=== PATIENT | female | born 1940 | race Asian ===

== ENCOUNTER → 2018-05-02 | Outpatient (CLI) | payer MEDICARE, OTHER ==
--- NOTE | 2018-05-02 14:49 | WOMENS IMAGING REPORT ---
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 LIMITATIONS: None. FINDINGS: LUMBAR SPINE: The bone mineral density (BMD) measured from L1-L4 in the AP projection correlates with a T-score of -1.9, which is osteopenic as defined by the World Health Organization. This is stable compared to 20 16 HIP: The bone mineral density (BMD) measured in the left femoral neck at the hip correlates with a T-score of - 3.0, which is osteoporotic as defined by the World Health Organization. This represents a 10% decline in bone density 2015 IMPRESSION: 1. LUMBAR SPINE: Osteopenic 2. HIP: The osteoporotic COMMENT: The World Health Organization defines low BMD as follows: T-score: Normal: Greater than -1.0 Osteopenia: Between -1.0 and -2.5 Osteoporosis: Less than -2.5 without fractures Established osteoporosis: Less than -2.5 with fractures In general, you may wish to consider: Diagnosis Treatment Follow-up DEXA Normal BMD Prevention 2-3 years Osteopenia Prevention/Therapy 1-2 years Osteoporosis Therapy Yearly TECHNICAL DOCUMENTATION: JOB ID: [id number]- All Rights Reserved Reading location - IP/workstation name: [facility]-[email or web address]
== END ==
LOC: WI 12:36
PROVIDERS: ATTEND Internal Medicine
DX: M81.0 Age-related osteoporosis without current pathological fracture (principal)
CPT/HCPCS: 77080

== ENCOUNTER 2018-05-28 17:41 | Inpatient (IN) | payer MEDICARE ==
[2018-05-28] MEDS ORDERED: NORMAL SALINE 1000 ML 1,000 ML IV ONE ×2 (17:54→23:30)
[2018-05-28] MEDS ORDERED: ONDANSETRON HCL INJ/PF 4 MG/2 ML SDV IV ONE (17:57)
[2018-05-28] MEDS ORDERED: LEVOFLOXACIN 750 MG/D5W RTU 750 MG/150 ML RTUPB IV ONE ×2 (18:21→19:00)
[2018-05-28 18:25] LABS: ABSOLUTE LYMPHOCYTES (AUTO) 1.1 10^3/uL (0.5-4.7); ABSOLUTE MONOCYTES (AUTO) 0.8 10^3/uL (0.1-1.4); ABSOLUTE NEUT (AUTO) 8.4 10^3/uL (1.7-8.2); BASOPHILS % (AUTO) 0.2 % (0-2); HEMATOCRIT 33.8 % (36.0-47.0); HEMOGLOBIN 11.3 g/dL (12.0-15.5); LYMPHOCYTES % (AUTO) 10.3 % (13-45); MEAN CORPUSCULAR HEMOGLOBIN 29.1 pg (27.0-33.4); MEAN CORPUSCULAR HGB CONC 33.3 g/dL (32.0-36.0); MEAN CORPUSCULAR VOLUME 88 fl (80-97); MONOCYTES % (AUTO) 7.4 % (3-13); PLATELET COUNT 304 10^3/uL (150-450); RED BLOOD COUNT 3.87 10^6/uL (3.72-5.28); RED CELL DISTRIBUTION WIDTH 13.6 % (11.5-14.0); SEGMENTED NEUTROPHILS % (AUTO) 82.1 % (42-78); TOTAL CELLS COUNTED % (AUTO) 100 %; WHITE BLOOD COUNT 10.3 10^3/uL (4.0-10.5)
[2018-05-28 18:27] LABS: VENOUS BLOOD BASE EXCESS -4.8 mmol/L; VENOUS BLOOD HCO3 19.1 mmol/L (20-32); VENOUS BLOOD PCO2 32.6 mmHg (35-63); VENOUS BLOOD PH 7.39 (7.30-7.42)
[2018-05-28 18:29] LABS: INTERNATIONAL RATION (INR) 0.92; PROTHROMBIN TIME 12.8 SEC (11.4-15.4)
[2018-05-28 18:39] LABS: ALANINE AMINOTRANSFERASE 112 U/L (9-52); ALBUMIN 3.3 g/dL (3.5-5.0); ALKALINE PHOSPHATASE 73 U/L (38-126); ANION GAP 11 (5-19); ASPARTATE AMINO TRANSFERASE 146 U/L (14-36); BILIRUBIN,DIRECT 0.4 mg/dL (0.0-0.4); BILIRUBIN,TOTAL 0.6 mg/dL (0.2-1.3); BLOOD UREA NITROGEN 19 mg/dL (7-20); CALCIUM 8.9 mg/dL (8.4-10.2); CARBON DIOXIDE 18 mmol/L (22-30); CHLORIDE 105 mmol/L (98-107); GLUCOSE 117 mg/dL (75-110); POTASSIUM 4.4 mmol/L (3.6-5.0); SODIUM 134.2 mmol/L (137-145); TOTAL PROTEIN 6.6 g/dL (6.3-8.2)
--- NOTE | 2018-05-28 18:42 | RADIOLOGY REPORT (SQ) ---
EXAM DESCRIPTION: CHEST SINGLE VIEW COMPLETED DATE/TIME: 05/28/2018 6:33 pm REASON FOR STUDY: bed 4 sepsis protocol COMPARISON: None. EXAM PARAMETERS: NUMBER OF VIEWS: One view. TECHNIQUE: Single frontal radiographic view of the chest acquired. RADIATION DOSE: NA LIMITATIONS: None. FINDINGS: LUNGS AND PLEURA: Extensive left upper lobe and less prominent left lower lobe opacity. R ight lung is clear. MEDIASTINUM AND HILAR STRUCTURES: No masses. Contour normal. HEART AND VASCULAR STRUCTURES: Heart normal in size. Normal vasculature. BONES: No acute findings. HARDWARE: None in the chest. OTHER: No other significant finding. IMPRESSION: Extensive pneumonia predominantly left upper lobe. TECHNICAL DOCUMENTATION: JOB ID: [id number] [employer]- All Rights Reserved Reading location - IP/workstation name: [email or web address]
--- NOTE | 2018-05-28 18:53 | ER Document Report ---
ED General - General Chief Complaint: Fever Stated Complaint: FEVER Time Seen by Provider: 05/28/18 17:46 TRAVEL OUTSIDE OF THE [place] IN LAST 30 DAYS: No - HPI Notes: 78-year-old female without any medical problems except for thyroid and parathyroid disease presents with family for fever for the past 6 days. She developed abdominal pain in the lower abdomen 3 days ago that resolved after diarrhea developed 2 days ago. She reports several episodes of diarrhea a day. She reports a mild cough that causes a headache. She denies any headache without cough. Cough has been occasionally productive of yellow sputum. She has extreme nausea without vomiting. Denies rash. Denies any neck pain, pain with urination, travel or ill contacts. She was seen by her primary care physician 2 days ago and was given a prescription for nausea medicines and told to take Tylenol. She states no testing was done. She was given Tylenol prior to arrival by EMS. - Related Data Allergies/Adverse Reactions: Penicillins Allergy (Verified 05/28/18 18:17) Past Medical History - Social History Smoking Status: Never Smoker Chew tobacco use (# tins/day): No Frequency of alcohol use: None Drug Abuse: None Family History: Reviewed & Not Pertinent Patient has suicidal ideation: No Patient has homicidal ideation: No Endocrine Medical History: Reports: Hx Hypothyroidism, Other - parathyroid Renal/ Medical History: Denies: Hx Peritoneal Dialysis Past Surgical History: Reports: Hx Appendectomy, Hx Hysterectomy Review of Systems - Review of Systems Notes: Constitutional: Positive for fever. HENT: Negative for sore throat or sinus congestion. Eyes: Negative for visual changes. Cardiovascular: Negative for chest pain. Respiratory: Negative for shortness of breath. Positive for cough Gastrointestinal: Positive for abdominal pain, diarrhea, and nausea. No vomiting. Genitourinary: Negative for dysuria. Musculoskeletal: Negative for back pain. Skin: Negative for rash. Neurological: Positive for headache only with cough. Negative for weakness or numbness. 10 point ROS negative except as marked above and in HPI. Physical Exam - Vital signs Vitals: Resp Pulse Ox 18 95 05/28/18 17:55 05/28/18 17:55 - Notes Notes: PHYSICAL EXAMINATION: GENERAL: Ill appearing, well-nourished HEAD: Atraumatic, normocephalic. EYES: Pupils equal round and reactive to light, extraocular movements intact, conjunctiva are normal. ENT: nares patent, oropharynx clear without exudates. Moist mucous membranes. Effusions bilateral tympanic membranes. NECK: Normal range of motion, supple without lymphadenopathy LUNGS: Breath sounds clear to auscultation bilaterally and equal. No wheezes rales or rhonchi. HEART: Regular rate and rhythm, no chest wall tenderness ABDOMEN: Soft, normoactive bowel sounds. Tenderness right lower quadrant. No guarding, no rebound. No masses appreciated. EXTREMITIES: Normal range of motion, no pitting or edema. No cyanosis. NEUROLOGICAL: Cranial nerves grossly intact. Normal speech, normal gait. Normal sensory and motor exams. PSYCH: Normal mood, normal affect. SKIN: Warm, Dry, normal turgor, no rashes or lesions noted. Course - Re-evaluation Re-evalutation: 05/28/18 18:58 X-ray shows pneumonia. Has allergy to penicillin. Given Levaquin. Culture sent. 05/28/18 20:08 Urine and flu pending. Other labs unremarkable. Normal lactic acid. Discussed with hospitalist for admission. Patient family updated. - Vital Signs Vital signs: Temp Pulse Resp BP Pulse Ox 100.8 F H 16 121/58 L 95 05/28/18 18:26 05/28/18 19:00 05/28/18 18:04 05/28/18 18:04 - Laboratory Result Diagrams: 05/28/18 18:03 05/28/18 18:03 Laboratory results interpreted by me: 05/28/18 05/28/18 05/28/18 18:03 18:03 18:03 Hgb 11.3 L Hct 33.8 L Seg Neutrophils % 82.1 H Lymphocytes % 10.3 L Absolute Neutrophils 8.4 H VBG pCO2 32.6 L VBG HCO3 19.1 L Sodium 134.2 L Carbon Dioxide 18 L Est GFR (Non-Af Amer) 54 L Glucose 117 H AST 146 H ALT 112 H Albumin 3.3 L Urine Protein Urine Ketones Urine Blood Urine Urobilinogen Urine Ascorbic Acid 05/28/18 18:49 Hgb Hct Seg Neutrophils % Lymphocytes % Absolute Neutrophils VBG pCO2 VBG HCO3 Sodium Carbon Dioxide Est GFR (Non-Af Amer) Glucose AST ALT Albumin Urine Protein 100 H Urine Ketones TRACE H Urine Blood MODERATE H Urine Urobilinogen 4.0 H Urine Ascorbic Acid 40 H Discharge - Discharge Clinical Impression: Sepsis Qualifiers: Sepsis type: sepsis due to unspecified organism Qualified Code(s): A41.9 - Sepsis, unspecified organism Pneumonia Qualifiers: Pneumonia type: due to unspecified organism Laterality: unspecified laterality Lung location: unspecified part of lung Qualified Code(s): J18.9 - Pneumonia, unspecified organism Condition: Fair Disposition: ADMITTED INPATIENT Admitting Provider: Hospitalist Unit Admitted: Telemetry Referrals: JESUS BURGOS MD [ACTIVE STAFF] - Follow up as needed
[2018-05-28 19:48] LABS: APPEARANCE,URINE CLOUDY; BILIRUBIN,URINE NEGATIVE (NEGATIVE); GLUCOSE, URINE NEGATIVE (NEGATIVE); KETONES,URINE TRACE mg/dL (NEGATIVE); LEUKOCYTE ESTERASE,URINE NEGATIVE (NEGATIVE); NITRITE,URINE NEGATIVE (NEGATIVE); PROTEIN,URINE 100 mg/dL (NEGATIVE); URINE SPECIFIC GRAVITY 1.023
[2018-05-28 19:51] LABS: COLOR,URINE YELLOW
[2018-05-28] MEDS ORDERED: KETOROLAC TROMETHAMINE INJ/PF 30 MG/1 ML SDV IV PRN (20:06)
[2018-05-28] MEDS ORDERED: HYDRALAZINE HCL INJ/PF 20 MG/1 ML SDV IV PRN (20:06)
[2018-05-28] MEDS ORDERED: HYDROCODONE BIT/HOMATROPINE SYRUP 5 ML UDCUP PO PRN (20:06)
[2018-05-28] MEDS ORDERED: GUAIFENESIN SYRP 200 MG/10 ML UDC PO PRN (20:07)
[2018-05-28] MEDS ORDERED: IPRATROPIUM/ALBUTEROL 0.5-2.5 MG/3 ML AMPUL NEB PRN (20:07)
[2018-05-28] MEDS ORDERED: NORMAL SALINE 1000 ML 1,000 ML IV SCH (20:15)
[2018-05-28 21:08] LABS: A TYPE INFLUENZA AG NEGATIVE (NEGATIVE); B INFLUENZA AG NEGATIVE (NEGATIVE)
[2018-05-28] MEDS ORDERED: CEFEPIME 2 GM/D5W RTU 2 GM/50 ML RTUPB IV SCH (22:00)
[2018-05-28] MEDS ORDERED: HEPARIN SOD (PORCINE) 5,000 UNIT/ML 1 ML SYRINGE SUBCUT SCH (22:00)
[2018-05-28] MEDS ORDERED: FLUTICASONE NASAL SPRAY 50 MCG/SPRY 120 SPRAY/16 GM ONE (23:35)
[2018-05-28] MEDS ORDERED: CEFEPIME 2 GM/D5W RTU 2 GM/50 ML RTUPB IV ONE ×2 (23:35→23:45)
[2018-05-28] MEDS: HEPARIN SOD (PORCINE) 5,000 UNIT/ML 1 ML SYRINGE SUBCUT SCH (23:46)
[2018-05-28] MEDS: FLUTICASONE NASAL SPRAY 50 MCG/SPRY 120 SPRAY/16 GM NASL SCH (23:46)
[2018-05-29] MEDS: IPRATROPIUM/ALBUTEROL 0.5-2.5 MG/3 ML AMPUL NEB SCH ×4 (01:42→19:43)
[2018-05-29] MEDS: ACETAMINOPHEN 325 MG TABLET PO PRN ×3 (01:52→20:04)
--- NOTE | 2018-05-29 04:20 | PDOC H&P ---
History of Present Illness Admission Date/PCP: 05/28/18 20:15 CLARISSA HASTINGS MD Patient complains of: Shortness of breath and cough History of Present Illness: FARAZ MERRILL is a 78 year old female with past medical history of hyperparathyroidism and remote pulmonary tuberculosis status post treatment, presents with 3 days of fever, shortness of breath and cough. In the emergency room she is found to have a left upper lobe infiltrate and fever of 102.6. She started on empiric antibiotics and referred to the hospitalist for admission. She denies infectious contacts, recent travel, sinusitis, aspiration or GERD. No recent antibiotic use. Past Medical History Cardiac Medical History: Reports: Hyperlipidema Endocrine Medical History: Reports: Hypothyroidism, Other - parathyroid Past Surgical History Past Surgical History: Reports: Appendectomy, Hysterectomy Social History Information Source: Patient Smoking Status: Never Smoker Frequency of Alcohol Use: Rare Hx Recreational Drug Use: No Drugs: None Hx Prescription Drug Abuse: No - Advance Directive Resuscitation Status: Full Code Family History Family History: Hypertension Parental Family History Reviewed: Yes Children Family History Reviewed: Yes Sibling(s) Family History Reviewed.: Yes Medication/Allergy Home Medications: Pravastatin Sodium [Pravachol] 10 mg PO QHS 05/28/18 Allergies/Adverse Reactions: Penicillins Allergy (Verified 05/28/18 18:17) Physical Exam Vital Signs: Temp Pulse Resp BP Pulse Ox 100.2 F 95 18 126/51 H 92 05/29/18 03:04 05/29/18 02:00 05/29/18 01:42 05/28/18 23:21 05/29/18 01:42 Pulse Oximeter Continuous Start: 05/28/18 20: 07 Freq: RTQ4 Status: Active Document 05/29/18 01:36 [facility] (Rec: 05/29/18 01:37 [facility] [id number]) Pulse Oximetry Assessment Oxygen Saturation (92-100) 92 Oxygen Delivery Method Room Air Fraction of Inspired Oxygen (FIO2) 21 Equipment Usage Initial Set Up Continuous Pulse Oximeter 24 Hour Charge Charge Now Continuous SpO2 Machine # 9 Intake & Output 05/27/18 05/28/18 05/29/18 11:59 11:59 11:59 Intake Total 150 Balance 150 Weight 63.3 kg General appearance: PRESENT: cooperative, mild distress. ABSENT: disheveled, hard of hearing Head exam: PRESENT: atraumatic, normocephalic Eye exam: PRESENT: conjunctiva pink, EOMI, PERRLA. ABSENT: scleral icterus Ear exam: PRESENT: normal external ear exam Mouth exam: PRESENT: moist, tongue midline Neck exam: ABSENT: carotid bruit, JVD, lymphadenopathy, thyromegaly Respiratory exam: PRESENT: crackles, decreased breath sounds, rales, retraction , rhonchi, tachypnea Cardiovascular exam: PRESENT: tachycardia. ABSENT: bradycardia, clicks, diastolic murmur, gallop Pulses: PRESENT: normal dorsalis pedis pul Vascular exam: PRESENT: normal capillary refill GI/Abdominal exam: PRESENT: normal bowel sounds, soft. ABSENT: distended, guarding, mass, organolmegaly, rebound, tenderness Rectal exam: PRESENT: deferred Extremities exam: PRESENT: full ROM. ABSENT: calf tenderness, clubbing, pedal edema Neurological exam: PRESENT: alert, awake, oriented to person, oriented to place , oriented to time, oriented to situation, CN II-XII grossly intact. ABSENT: motor sensory deficit Psychiatric exam: PRESENT: appropriate affect, normal mood. ABSENT: homicidal ideation, suicidal ideation Skin exam: PRESENT: dry, intact, warm. ABSENT: cyanosis, rash Results Impressions: Chest X-Ray 05/28/18 17:42 IMPRESSION: Extensive pneumonia predominantly left upper lobe. Assessment & Plan - Diagnosis (1) Pneumonia Qualifiers: Pneumonia type: due to unspecified organism Laterality: unspecified laterality Lung location: unspecified part of lung Qualified Code(s): J18.9 - Pneumonia, unspecified organism Is this a current diagnosis for this admission?: Yes Plan: Complicated by history of pulmonary tuberculosis, status post curative treatment. Pneumonia care set, albuterol and Atrovent, empiric antibiotics, follow-up CBC, follow-up CT chest (2) Sepsis Qualifiers: Sepsis type: sepsis due to unspecified organism Qualified Code(s): A41.9 - Sepsis, unspecified organism Is this a current diagnosis for this admission?: Yes Plan: Secondary to #1, IV fluid challenge - Time Time Spent: 50 to 70 Minutes - Inpatient Certification Medical Necessity: Need Close Monitoring Due to Risk of Patient Decompensation
[2018-05-29] MEDS ORDERED: NORMAL SALINE 1000 ML 1,000 ML IV PRN (05:10)
[2018-05-29] MEDS: HEPARIN SOD (PORCINE) 5,000 UNIT/ML 1 ML SYRINGE SUBCUT SCH ×3 (05:25→22:44)
[2018-05-29 06:40] LABS: ABSOLUTE LYMPHOCYTES (AUTO) 0.9 10^3/uL (0.5-4.7); ABSOLUTE MONOCYTES (AUTO) 0.4 10^3/uL (0.1-1.4); BASOPHILS % (AUTO) 0.3 % (0-2); HEMATOCRIT 32.6 % (36.0-47.0); LYMPHOCYTES % (AUTO) 10.9 % (13-45); MEAN CORPUSCULAR HEMOGLOBIN 29.7 pg (27.0-33.4); MEAN CORPUSCULAR HGB CONC 33.8 g/dL (32.0-36.0); MEAN CORPUSCULAR VOLUME 88 fl (80-97); MONOCYTES % (AUTO) 4.9 % (3-13); PLATELET COUNT 236 10^3/uL (150-450); RED BLOOD COUNT 3.71 10^6/uL (3.72-5.28); RED CELL DISTRIBUTION WIDTH 13.6 % (11.5-14.0); SEGMENTED NEUTROPHILS % (AUTO) 83.9 % (42-78); TOTAL CELLS COUNTED % (AUTO) 100 %; WHITE BLOOD COUNT 8.4 10^3/uL (4.0-10.5)
[2018-05-29 06:56] LABS: ANION GAP 10 (5-19); BLOOD UREA NITROGEN 14 mg/dL (7-20); CALCIUM 8.1 mg/dL (8.4-10.2); CARBON DIOXIDE 17 mmol/L (22-30); CHLORIDE 111 mmol/L (98-107); GLUCOSE 110 mg/dL (75-110); POTASSIUM 4.2 mmol/L (3.6-5.0); SODIUM 137.6 mmol/L (137-145)
--- NOTE | 2018-05-29 07:36 | EKG REPORT ---
SEVERITY:- NORMAL ECG - SINUS RHYTHM : Confirmed by: Shayne Sim MD 29-May-2018 07:35:51
--- NOTE | 2018-05-29 08:50 | RADIOLOGY REPORT (SQ) ---
EXAM DESCRIPTION: CT CHEST WITHOUT COMPLETED DATE/TIME: 05/29/2018 8:13 am REASON FOR STUDY: atypical pna hx TB COMPARISON: AP chest 05/28/2018 CT abdomen pelvis 04/09/2007 TECHNIQUE: CT scan performed of the chest without intravenous contrast. Images reviewed with lung, soft tissue and bone windows. Reconstructed coronal and sagittal MPR images reviewed. All images st ored on PACS. All CT scanners at this facility use dose modulation, iterative reconstruction, and/or weight based d osing when appropriate to reduce radiation dose to as low as reasonably achievable (ALARA). [facility]: Dose Right [facility]: CareDose [facility]: Dose Right [facility]: Teradose 4D [facility]: [employer] Technologies RADIATION DOSE: CT Rad equipment meets quality standard of care and radiation dose reduction techniq ues were employed. CTDIvol: 4.7 mGy. DLP: 173 mGy-cm. mGy. LIMITATIONS: No technical limitations. FINDINGS: LUNGS AND PLEURA: Dense consolidation is present in the left upper lobe at the lung apex. Question cavitation along the inferior aspect of the infiltrate on axial image 58. There is trace airspace disease in the anterior inferior lingula, and in the left lower lobe. Trace left pleural effusion. Findings are worrisome for pneumonia with endobronchial spread from the left upper lobe to the left lower lobe. Findings could indicate tuberculosis. Aspiration is possible, co mmunity acquired pneumonia is possible. Right lung is well inflated and clear. No right pleural effusion. No right or left pneumothorax. HILAR AND MEDIASTINAL STRUCTURES: There are small subcentimeter prevascular, left hilar, and AP windo w lymph nodes likely reactive. HEART AND VASCULAR STRUCTURES: No aneurysm. No pericardial effusion. UPPER ABDOMEN: No significant findings. Stable hemangioma posterior right lobe liver subdiaphragmati c surface 4.6 x 3 cm in size, unchanged from CT abdomen pelvis 04/09/2007. This is of doubtful clinic al significance. THYROID AND OTHER SOFT TISSUES: No masses. No adenopathy. BONES: No significant finding. HARDWARE: None in the chest. OTHER: Dense partially cavitary pneumonia in the left upper lobe was discussed with Alexandra Gibbs P 0815 hours, 05/29/2018. Given the patient's history and imaging findings, tuberculosis is a possibi lity. This was discussed with Camryn Mujica, who will put the patient on isolation immediately. IMPRESSION: Dense cavitary pneumonia in the left upper lobe with evidence of endobronchial spread to the lingula and left lower lobe. Trace left pleural effusion. Although this could be aspiration or community acquired pneumonia, tuberculosis is also a possibility. This finding was discussed with t nidhi patient's hospitalist caregiver, 0815 hours 05/29/2018. TECHNICAL DOCUMENTATION: JOB ID: [id number] Quality ID # [id number]: Final reports with documentation of one or more dose reduction techniques (e.g., Au tomated exposure control, adjustment of the mA and/or kV according to patient size, use of iterative reconstruction technique) 2010 [employer]- All Rights Reserved Reading location - IP/workstation name: [email or web address]
[2018-05-29] MEDS: FLUTICASONE NASAL SPRAY 50 MCG/SPRY 120 SPRAY/16 GM NASL SCH ×2 (10:47→22:45)
--- NOTE | 2018-05-29 16:46 | PDOC PROGRESS REPORT ---
Subjective Progress Note for:: 05/29/18 Subjective:: This is a 1 years old [place] female patient with past medical history of hypertension, hyperlipidemia, hypothyroidism and hypoparathyroidism presented with chief complaint of cough and shortness of breath of 6 days duration. The cough is occasionally productive of yellowish sputum. Chest x- ray and CT scan of the chest shows extensive left upper lobe infiltration with cavitation. Of note patient has past medical history of tuberculosis and reportedly had been treated. Since the imaging finding is suspicious for tuberculosis and pneumonia patient put on isolation. Lab studies including QuantiFERON, sputum culture for AFB, ESR and CRP, and acid-fast bacilli staining and blood culture for Mycobacterium requested. Patient is already being treated for pneumonia with cefepime but I empirically started her on INH, rifampicin, ethambutol and pyrizinamide. Reason For Visit: SEPSIS, PNEUMONIA Physical Exam Vital Signs: Temp Pulse Resp BP Pulse Ox 99.4 F 94 20 118/52 L 96 05/29/18 15:28 05/29/18 15:28 05/29/18 15:28 05/29/18 15:28 05/29/18 15:28 Pulse Oximeter Continuous Start: 05/28/18 20: 07 Freq: RTQ4 Status: Active Document 05/29/18 14:15 [facility] [place] (Rec: 05/29/18 14:15 [facility] [id number]) Pulse Oximetry Assessment Oxygen Delivery Method Room Air Equipment Usage Equipment in Use Continuous SpO2 Machine # 9 Intake & Output 05/28/18 05/29/18 05/30/18 06:59 06:59 06:59 Intake Total 1400 Balance 1400 Weight 63.3 kg General appearance: PRESENT: mild distress Head exam: PRESENT: atraumatic, normocephalic Eye exam: PRESENT: conjunctiva pink Mouth exam: PRESENT: moist Neck exam: ABSENT: carotid bruit, JVD, lymphadenopathy, thyromegaly Respiratory exam: PRESENT: crackles - Coarse crepitation at the left upper lobe Cardiovascular exam: PRESENT: RRR. ABSENT: diastolic murmur, rubs, systolic murmur GI/Abdominal exam: PRESENT: normal bowel sounds, soft. ABSENT: distended, guarding, mass, organolmegaly, rebound, tenderness Extremities exam: PRESENT: full ROM. ABSENT: calf tenderness, clubbing, pedal edema Neurological exam: PRESENT: alert, awake Results Laboratory Results: 05/29/18 06:07 05/29/18 06:07 05/29/18 05/29/18 06:07 06:07 WBC 8.4 RBC 3.71 L Hgb 11.0 L Hct 32.6 L MCV 88 MCH 29.7 MCHC 33.8 RDW 13.6 Plt Count 236 Seg Neutrophils % 83.9 H Lymphocytes % 10.9 L Monocytes % 4.9 Eosinophils % 0.0 Basophils % 0.3 Absolute Neutrophils 7.0 Absolute Lymphocytes 0.9 Absolute Monocytes 0.4 Absolute Eosinophils 0.0 Absolute Basophils 0.0 Sodium 137.6 Potassium 4.2 Chloride 111 H Carbon Dioxide 17 L Anion Gap 10 BUN 14 Creatinine 0.93 Est GFR ( Amer) > 60 Est GFR (Non-Af Amer) 58 L Glucose 110 Calcium 8.1 L Impressions: Chest X-Ray 05/28/18 17:42 IMPRESSION: Extensive pneumonia predominantly left upper lobe. Chest CT 05/29/18 00:00 IMPRESSION: Dense cavitary pneumonia in the left upper lobe with evidence of endobronchial spread to the lingula and left lower lobe. Trace left pleural effusion. Although this could be aspiration or community acquired pneumonia, tuberculosis is also a possibility. This finding was discussed with the patient 's hospitalist caregiver, 0815 hours 05/29/2018. Assessment & Plan - Diagnosis (1) Left upper lobe cavitary lesion Is this a current diagnosis for this admission?: Yes Plan: Chest x-ray and CT scan of the chest revealed extensive left upper lobe infiltrate and cavitation. On-call physician patient started on cefepime for pneumonia and I will continue the same medication. Since patient has past medical history of tuberculosis reportedly treated, will workup the patient for reactivation of pulmonary tuberculosis. In the meantime we will start the patient on antituberculous regimen empirically. (2) Hypothyroidism Qualifiers: Hypothyroidism type: acquired Qualified Code(s): E03.9 - Hypothyroidism, unspecified Is this a current diagnosis for this admission?: Yes Plan: Continue home medication (3) Hyperlipidemia Qualifiers: Hyperlipidemia type: unspecified Qualified Code(s): E78.5 - Hyperlipidemia , unspecified Is this a current diagnosis for this admission?: Yes Plan: Continue Lipitor (4) Hypoparathyroidism Is this a current diagnosis for this admission?: Yes Plan: Continue home medication.
[2018-05-29] MEDS ORDERED: PYRAZINAMIDE 500 MG TABLET PO SCH ×2 (17:30)
[2018-05-29] MEDS: ISONIAZID 300 MG TABLET PO SCH (18:33)
[2018-05-29] MEDS: ETHAMBUTOL HCL 400 MG TABLET PO SCH (18:33)
[2018-05-29] MEDS: RIFAMPIN 300 MG CAPSULE PO SCH (18:33)
[2018-05-29] MEDS: CEFEPIME 2 GM/D5W RTU 2 GM/50 ML RTUPB IV SCH (22:44)
[2018-05-30] MEDS: IPRATROPIUM/ALBUTEROL 0.5-2.5 MG/3 ML AMPUL NEB SCH ×4 (02:11→20:33)
[2018-05-30 05:07] LABS: ABSOLUTE LYMPHOCYTES (AUTO) 0.9 10^3/uL (0.5-4.7); ABSOLUTE MONOCYTES (AUTO) 0.5 10^3/uL (0.1-1.4); ABSOLUTE NEUT (AUTO) 6.3 10^3/uL (1.7-8.2); BASOPHILS % (AUTO) 0.4 % (0-2); EOSINOPHILS % (AUTO) 0.1 % (0-6); HEMATOCRIT 33.1 % (36.0-47.0); LYMPHOCYTES % (AUTO) 11.6 % (13-45); MEAN CORPUSCULAR HEMOGLOBIN 29.1 pg (27.0-33.4); MEAN CORPUSCULAR HGB CONC 33.3 g/dL (32.0-36.0); MEAN CORPUSCULAR VOLUME 87 fl (80-97); MONOCYTES % (AUTO) 6.5 % (3-13); PLATELET COUNT 295 10^3/uL (150-450); RED BLOOD COUNT 3.79 10^6/uL (3.72-5.28); RED CELL DISTRIBUTION WIDTH 14.1 % (11.5-14.0); SEGMENTED NEUTROPHILS % (AUTO) 81.4 % (42-78); TOTAL CELLS COUNTED % (AUTO) 100 %; WHITE BLOOD COUNT 7.7 10^3/uL (4.0-10.5)
[2018-05-30 05:38] LABS: ANION GAP 11 (5-19); BLOOD UREA NITROGEN 10 mg/dL (7-20); CALCIUM 8.4 mg/dL (8.4-10.2); CARBON DIOXIDE 17 mmol/L (22-30); CHLORIDE 111 mmol/L (98-107); GLUCOSE 118 mg/dL (75-110); POTASSIUM 4.2 mmol/L (3.6-5.0); SODIUM 139.4 mmol/L (137-145)
[2018-05-30] MEDS: HEPARIN SOD (PORCINE) 5,000 UNIT/ML 1 ML SYRINGE SUBCUT SCH ×3 (05:42→21:43)
[2018-05-30 05:45] LABS: ERYTHROCYTE SEDIMENTATION RATE 92 mm/hr (0-30)
[2018-05-30 08:08] LABS: ALANINE AMINOTRANSFERASE 69 U/L (9-52); ALBUMIN 2.6 g/dL (3.5-5.0); ALKALINE PHOSPHATASE 73 U/L (38-126); ASPARTATE AMINO TRANSFERASE 72 U/L (14-36); BILIRUBIN,DIRECT 1.1 mg/dL (0.0-0.4); BILIRUBIN,TOTAL 1.5 mg/dL (0.2-1.3); TOTAL PROTEIN 5.8 g/dL (6.3-8.2)
--- NOTE | 2018-05-30 09:47 | PDOC PROGRESS REPORT ---
Subjective Subjective:: This is a 78 years old [place] female patient with past medical history of hypertension, hyperlipidemia, hypothyroidism and hypoparathyroidism presented with chief complaint of cough and shortness of breath of 6 days duration. The cough is occasionally productive of yellowish sputum. Chest x-ray and CT scan of the chest shows extensive left upper lobe infiltration with cavitation. Of note patient has past medical history of tuberculosis and reportedly had been treated back in [id number]. Since the imaging finding is suspicious for pulmonary tuberculosis patient put on isolation and droplet precaution. Lab studies including QuantiFERON, sputum culture for AFB, ESR and CRP, and acid- fast bacilli staining and blood culture for nontuberculous mycobacterium requested. Today her ESR is 92 and her C-reactive protein is 231. She will I put the patient on INH, rifampicin, ethambutol and pyrizinamide, I hold his peritoneal med since patient has some deranged liver chemistry. I have a long discussion with Dr. Rashaad Thrasher, ID at [facility] who agreed with the management. Reason For Visit: SEPSIS, PNEUMONIA Physical Exam Vital Signs: Temp Pulse Resp BP Pulse Ox 99.8 F 92 14 126/54 H 97 05/30/18 07:58 05/30/18 08:28 05/30/18 08:28 05/30/18 07:58 05/30/18 08:28 Pulse Oximeter Continuous Start: 05/28/18 20: 07 Freq: RTQ4 Status: Active Document 05/30/18 08:28 [facility] (Rec: 05/30/18 08:56 [facility] [id number]) Pulse Oximetry Assessment Oxygen Saturation (92-100) 97 Oxygen Flow Rate (L/min) 2 Oxygen Delivery Method Nasal Cannula Equipment Usage Equipment in Use Continuous SpO2 Machine # [id number] Intake & Output 05/29/18 05/30/18 05/31/18 06:59 06:59 06:59 Intake Total 1400 355 50 Output Total 500 Balance 1400 -145 50 Weight 63.3 kg 63.7 kg Results Laboratory Results: 05/30/18 04:19 05/30/18 04:19 05/30/18 05/30/18 05/30/18 04:19 04:19 04:19 WBC 7.7 RBC 3.79 Hgb 11.0 L Hct 33.1 L MCV 87 MCH 29.1 MCHC 33.3 RDW 14.1 H Plt Count 295 Seg Neutrophils % 81.4 H Lymphocytes % 11.6 L Monocytes % 6.5 Eosinophils % 0.1 Basophils % 0.4 Absolute Neutrophils 6.3 Absolute Lymphocytes 0.9 Absolute Monocytes 0.5 Absolute Eosinophils 0.0 Absolute Basophils 0.0 Sodium 139.4 Potassium 4.2 Chloride 111 H Carbon Dioxide 17 L Anion Gap 11 BUN 10 Creatinine 0.73 Est GFR ( Amer) > 60 Est GFR (Non-Af Amer) > 60 Glucose 118 H Calcium 8.4 Total Bilirubin 1.5 H AST 72 H ALT 69 H Alkaline Phosphatase 73 C-Reactive Protein 231.0 H Total Protein 5.8 L Albumin 2.6 L Impressions: Chest X-Ray 05/28/18 17:42 IMPRESSION: Extensive pneumonia predominantly left upper lobe. Chest CT 05/29/18 00:00 IMPRESSION: Dense cavitary pneumonia in the left upper lobe with evidence of endobronchial spread to the lingula and left lower lobe. Trace left pleural effusion. Although this could be aspiration or community acquired pneumonia, tuberculosis is also a possibility. This finding was discussed with the patient 's hospitalist caregiver, 0815 hours 05/29/2018. Assessment & Plan - Diagnosis (1) Left upper lobe cavitary lesion Is this a current diagnosis for this admission?: Yes Plan: Continue cefepime and antituberculous regimen. Lab tested for pulmonary TB are pending. Keep isolation and droplet precaution. (2) Hypothyroidism Qualifiers: Hypothyroidism type: acquired Qualified Code(s): E03.9 - Hypothyroidism, unspecified Is this a current diagnosis for this admission?: Yes Plan: Continue home medication (3) Hyperlipidemia Qualifiers: Hyperlipidemia type: unspecified Qualified Code(s): E78.5 - Hyperlipidemia , unspecified Is this a current diagnosis for this admission?: Yes Plan: Continue Lipitor (4) Hypoparathyroidism Is this a current diagnosis for this admission?: Yes Plan: Continue home medication.
[2018-05-30] MEDS: ETHAMBUTOL HCL 400 MG TABLET PO SCH (09:53)
[2018-05-30] MEDS: RIFAMPIN 300 MG CAPSULE PO SCH (09:54)
[2018-05-30] MEDS: FLUTICASONE NASAL SPRAY 50 MCG/SPRY 120 SPRAY/16 GM NASL SCH ×2 (09:54→21:42)
[2018-05-30] MEDS: ISONIAZID 300 MG TABLET PO SCH (09:54)
[2018-05-30] MEDS: ACETAMINOPHEN 325 MG TABLET PO PRN (16:32)
[2018-05-30] MEDS: LEVOFLOXACIN 750 MG/D5W RTU 750 MG/150 ML RTUPB IV SCH (17:25)
[2018-05-30] MEDS: CEFEPIME 2 GM/D5W RTU 2 GM/50 ML RTUPB IV SCH (21:43)
[2018-05-31] MEDS: IPRATROPIUM/ALBUTEROL 0.5-2.5 MG/3 ML AMPUL NEB SCH ×4 (02:06→20:49)
[2018-05-31] MEDS: HEPARIN SOD (PORCINE) 5,000 UNIT/ML 1 ML SYRINGE SUBCUT SCH ×3 (05:24→21:01)
[2018-05-31 05:29] LABS: HEMATOCRIT 32.1 % (36.0-47.0); HEMOGLOBIN 10.8 g/dL (12.0-15.5); MEAN CORPUSCULAR HGB CONC 33.7 g/dL (32.0-36.0); MEAN CORPUSCULAR VOLUME 86 fl (80-97); PLATELET COUNT 346 10^3/uL (150-450); RED BLOOD COUNT 3.73 10^6/uL (3.72-5.28); WHITE BLOOD COUNT 7.8 10^3/uL (4.0-10.5)
[2018-05-31 05:55] LABS: ANION GAP 12 (5-19); BLOOD UREA NITROGEN 8 mg/dL (7-20); CALCIUM 8.6 mg/dL (8.4-10.2); CARBON DIOXIDE 18 mmol/L (22-30); CHLORIDE 111 mmol/L (98-107); GLUCOSE 112 mg/dL (75-110); SODIUM 140.7 mmol/L (137-145)
[2018-05-31 07:21] LABS: ABSOLUTE LYMPHOCYTES# (MANUAL) 1.1 10^3/uL (0.5-4.7); ABSOLUTE MONOCYTES # (MANUAL) 0.8 10^3/uL (0.1-1.4); ABSOLUTE NEUTROPHILS# (MANUAL) 5.7 10^3/uL (1.7-8.2); BAND NEUTROPHILS % (MANUAL) 5 % (3-5); BASOPHILS % (MANUAL) 0 % (0-2); EOSINOPHILS % (MANUAL) 3 % (0-6); LYMPHOCYTES % (MANUAL) 14 % (13-45); MONOCYTES % (MANUAL) 10 % (3-13); SEGMENTED NEUTROPHILS % (MAN) 68 % (42-78); TOTAL CELLS COUNTED 100
[2018-05-31 07:23] LABS: ANISOCYTOSIS SLIGHT; PLATELET COMMENT ADEQUATE; PLATELET LARGE PRESENT; TOXIC GRANULATION 1+
[2018-05-31] MEDS: FLUTICASONE NASAL SPRAY 50 MCG/SPRY 120 SPRAY/16 GM NASL SCH ×2 (09:43→21:02)
[2018-05-31] MEDS: RIFAMPIN 300 MG CAPSULE PO SCH (09:44)
[2018-05-31] MEDS: ETHAMBUTOL HCL 400 MG TABLET PO SCH (09:45)
[2018-05-31] MEDS: ISONIAZID 300 MG TABLET PO SCH (09:45)
[2018-05-31] MEDS ORDERED: POLYETHYLENE GLYCOL 3350 POWDER 17 GM/1 PACKET PO ONE (14:00)
--- NOTE | 2018-05-31 14:00 | PDOC PROGRESS REPORT ---
Subjective Progress Note for:: 05/31/18 Subjective:: Patient seen and examined resting in bed. She complains of cough and constipation. She started on MiraLAX for her constipation. Since we need to sputum for AFB we do not want to suppress her cough. Her daughter states sputum for AFB is negative and the second is pending. Reason For Visit: SEPSIS, PNEUMONIA Physical Exam Vital Signs: Temp Pulse Resp BP Pulse Ox 99.3 F 96 14 133/47 H 99 05/31/18 03:27 05/31/18 08:44 05/31/18 08:44 05/31/18 03:27 05/31/18 11:02 Pulse Oximeter Continuous Start: 05/28/18 20: 07 Freq: RTQ4 Status: Active Document 05/31/18 11:02 [facility] (Rec: 05/31/18 11:03 [facility] [id number]) Pulse Oximetry Assessment Oxygen Saturation (92-100) 99 Oxygen Delivery Method Room Air Fraction of Inspired Oxygen (FIO2) 21 Equipment Usage Equipment in Use Continuous SpO2 Machine # 9 Intake & Output 05/30/18 05/31/18 06/01/18 06:59 06:59 06:59 Intake Total 355 1205 Output Total 500 1900 Balance -145 -695 Weight 63.7 kg 62.9 kg General appearance: PRESENT: no acute distress Head exam: PRESENT: atraumatic Mouth exam: PRESENT: moist Neck exam: ABSENT: carotid bruit, JVD, lymphadenopathy, thyromegaly Respiratory exam: PRESENT: crackles - Coarse crepitation of the left upper lung Cardiovascular exam: PRESENT: RRR. ABSENT: diastolic murmur, rubs, systolic murmur GI/Abdominal exam: PRESENT: normal bowel sounds, soft. ABSENT: distended, guarding, mass, organolmegaly, rebound, tenderness Neurological exam: PRESENT: alert, awake, oriented to time, oriented to situation Results Laboratory Results: 05/31/18 04:26 05/31/18 04:26 05/31/18 05/31/18 04:26 04:26 WBC 7.8 RBC 3.73 Hgb 10.8 L Hct 32.1 L MCV 86 MCH 29.0 MCHC 33.7 RDW 14.0 Plt Count 346 Seg Neutrophils % Not Reportable Lymphocytes % Not Reportable Monocytes % Not Reportable Eosinophils % Not Reportable Basophils % Not Reportable Absolute Neutrophils Not Reportable Absolute Lymphocytes Not Reportable Absolute Monocytes Not Reportable Absolute Eosinophils Not Reportable Absolute Basophils Not Reportable Sodium 140.7 Potassium 4.0 Chloride 111 H Carbon Dioxide 18 L Anion Gap 12 BUN 8 Creatinine 0.65 Est GFR ( Amer) > 60 Est GFR (Non-Af Amer) > 60 Glucose 112 H Calcium 8.6 Impressions: Chest X-Ray 05/28/18 17:42 IMPRESSION: Extensive pneumonia predominantly left upper lobe. Chest CT 05/29/18 00:00 IMPRESSION: Dense cavitary pneumonia in the left upper lobe with evidence of endobronchial spread to the lingula and left lower lobe. Trace left pleural effusion. Although this could be aspiration or community acquired pneumonia, tuberculosis is also a possibility. This finding was discussed with the patient 's hospitalist caregiver, 0815 hours 05/29/2018. Assessment & Plan - Diagnosis (1) Left upper lobe cavitary lesion Is this a current diagnosis for this admission?: Yes Plan: Continue cefepime and antituberculous regimen. Lab tested for pulmonary TB are pending. Keep isolation and droplet precaution. (2) Hypothyroidism Qualifiers: Hypothyroidism type: acquired Qualified Code(s): E03.9 - Hypothyroidism, unspecified Is this a current diagnosis for this admission?: Yes Plan: Continue home medication (3) Hyperlipidemia Qualifiers: Hyperlipidemia type: unspecified Qualified Code(s): E78.5 - Hyperlipidemia , unspecified Is this a current diagnosis for this admission?: Yes Plan: Continue Lipitor (4) Hypoparathyroidism Is this a current diagnosis for this admission?: Yes Plan: Continue home medication.
[2018-05-31] MEDS: CEFEPIME 2 GM/D5W RTU 2 GM/50 ML RTUPB IV SCH (21:01)
[2018-06-01] MEDS: IPRATROPIUM/ALBUTEROL 0.5-2.5 MG/3 ML AMPUL NEB SCH ×4 (02:38→20:59)
[2018-06-01] MEDS: HEPARIN SOD (PORCINE) 5,000 UNIT/ML 1 ML SYRINGE SUBCUT SCH ×3 (05:39→22:11)
[2018-06-01] MEDS: ETHAMBUTOL HCL 400 MG TABLET PO SCH (09:08)
[2018-06-01] MEDS: FLUTICASONE NASAL SPRAY 50 MCG/SPRY 120 SPRAY/16 GM NASL SCH ×2 (09:08→22:10)
[2018-06-01] MEDS: ISONIAZID 300 MG TABLET PO SCH (09:09)
[2018-06-01] MEDS: RIFAMPIN 300 MG CAPSULE PO SCH (09:09)
--- NOTE | 2018-06-01 09:27 | RADIOLOGY REPORT (SQ) ---
EXAM DESCRIPTION: CHEST SINGLE VIEW COMPLETED DATE/TIME: 06/01/2018 8:59 am REASON FOR STUDY: Pneumonia COMPARISON: Multiples, most recent 05/29/2018 EXAM PARAMETERS: NUMBER OF VIEWS: One view. TECHNIQUE: Single frontal radiographic view of the chest acquired. RADIATION DOSE: NA LIMITATIONS: None. FINDINGS: LUNGS AND PLEURA: Unchanged left upper lobe opacity and small left pleural effusion. No n ew airspace opacities. Right costophrenic angle is sharp. No pneumothorax. MEDIASTINUM AND HILAR STRUCTURES: No masses. Contour normal. HEART AND VASCULAR STRUCTURES: Heart normal in size. It calcified plaque of the aortic knob. Otherw ise, normal vasculature. BONES: No acute findings. HARDWARE: None in the chest. OTHER: No other significant finding. IMPRESSION: Unchanged left upper lobe opacity and small left pleural effusion. TECHNICAL DOCUMENTATION: JOB ID: [id number] [employer]- All Rights Reserved Reading location - IP/workstation name: KE
--- NOTE | 2018-06-01 13:01 | PDOC PROGRESS REPORT ---
Subjective Progress Note for:: 06/01/18 Subjective:: Patient seen resting in bed comfortably. Patient reports that she moved her bowels after she was given MiraLAX. She complains of indigestion. Her 2 sets of sputum are negative for acid-fast bacilli. The studies pending. Reason For Visit: SEPSIS, PNEUMONIA Physical Exam Vital Signs: Temp Pulse Resp BP Pulse Ox 98.2 F 88 16 132/50 H 90 L 06/01/18 12:06 06/01/18 12:06 06/01/18 12:06 06/01/18 12:06 06/01/18 12:06 Pulse Oximeter Continuous Start: 05/28/18 20: 07 Freq: RTQ4 Status: Active Document 06/01/18 12:00 [facility] (Rec: 06/01/18 12:01 [facility] [id number]) Pulse Oximetry Assessment Oxygen Saturation (92-100) 93 Oxygen Delivery Method Room Air Equipment Usage Equipment in Use Continuous SpO2 Machine # 9 Intake & Output 05/31/18 06/01/18 06/02/18 06:59 06:59 06:59 Intake Total 1205 1000 100 Output Total 1900 1250 400 Balance -695 -250 -300 Weight 62.9 kg 63.6 kg General appearance: PRESENT: no acute distress, well-developed, well-nourished Head exam: PRESENT: atraumatic, normocephalic Eye exam: PRESENT: conjunctiva pink, EOMI, PERRLA. ABSENT: scleral icterus Ear exam: PRESENT: normal external ear exam Mouth exam: PRESENT: moist, tongue midline Neck exam: ABSENT: carotid bruit, JVD, lymphadenopathy, thyromegaly Respiratory exam: PRESENT: crackles - Left upper lobe, decreased breath sounds. ABSENT: rales, rhonchi, wheezes Cardiovascular exam: PRESENT: RRR. ABSENT: diastolic murmur, rubs, systolic murmur Pulses: PRESENT: normal dorsalis pedis pul Vascular exam: PRESENT: normal capillary refill GI/Abdominal exam: PRESENT: normal bowel sounds, soft. ABSENT: distended, guarding, mass, organolmegaly, rebound, tenderness Rectal exam: PRESENT: deferred Extremities exam: PRESENT: full ROM. ABSENT: calf tenderness, clubbing, pedal edema Neurological exam: PRESENT: alert, awake, oriented to person, oriented to place , oriented to time, oriented to situation, CN II-XII grossly intact. ABSENT: motor sensory deficit Psychiatric exam: PRESENT: appropriate affect, normal mood. ABSENT: homicidal ideation, suicidal ideation Skin exam: PRESENT: dry, intact, warm. ABSENT: cyanosis, rash Results Laboratory Results: 05/31/18 04:26 05/31/18 04:26 05/30/18 06:07 Sputum AFB Smear Concentration - Final 05/30/18 06:07 Sputum Acid Fast Bacilli Smear - Final 05/29/18 17:06 Blood AFB Smear Concentration - Final Impressions: Chest CT 05/29/18 00:00 IMPRESSION: Dense cavitary pneumonia in the left upper lobe with evidence of endobronchial spread to the lingula and left lower lobe. Trace left pleural effusion. Although this could be aspiration or community acquired pneumonia, tuberculosis is also a possibility. This finding was discussed with the patient 's hospitalist caregiver, 0815 hours 05/29/2018. Chest X-Ray 06/01/18 00:00 IMPRESSION: Unchanged left upper lobe opacity and small left pleural effusion. Assessment & Plan - Diagnosis (1) Left upper lobe cavitary lesion Is this a current diagnosis for this admission?: Yes Plan: Continue cefepime and antituberculous regimen. Lab tested for pulmonary TB are pending. Keep isolation and droplet precaution. (2) Hypothyroidism Qualifiers: Hypothyroidism type: acquired Qualified Code(s): E03.9 - Hypothyroidism, unspecified Is this a current diagnosis for this admission?: Yes Plan: Continue home medication (3) Hyperlipidemia Qualifiers: Hyperlipidemia type: unspecified Qualified Code(s): E78.5 - Hyperlipidemia , unspecified Is this a current diagnosis for this admission?: Yes Plan: Continue Lipitor (4) Hypoparathyroidism Is this a current diagnosis for this admission?: Yes Plan: Continue home medication.
[2018-06-01] MEDS ORDERED: ONDANSETRON HCL INJ/PF 4 MG/2 ML SDV IV PRN (13:54)
[2018-06-01] MEDS ORDERED: ONDANSETRON HCL INJ/PF 4 MG/2 ML SDV IV ONE (14:00)
[2018-06-01] MEDS: LEVOFLOXACIN 750 MG/D5W RTU 750 MG/150 ML RTUPB IV SCH (17:21)
[2018-06-01] MEDS ORDERED: CEFEPIME 2 GM/D5W RTU 2 GM/50 ML RTUPB IV ONE (21:52)
[2018-06-01] MEDS: CEFEPIME 2 GM/D5W RTU 2 GM/50 ML RTUPB IV SCH (22:11)
[2018-06-02] MEDS: IPRATROPIUM/ALBUTEROL 0.5-2.5 MG/3 ML AMPUL NEB SCH ×4 (02:58→20:11)
[2018-06-02] MEDS: HEPARIN SOD (PORCINE) 5,000 UNIT/ML 1 ML SYRINGE SUBCUT SCH ×3 (05:43→22:03)
[2018-06-02] MEDS: RIFAMPIN 300 MG CAPSULE PO SCH (08:04)
[2018-06-02] MEDS: ETHAMBUTOL HCL 400 MG TABLET PO SCH (10:19)
[2018-06-02] MEDS: ISONIAZID 300 MG TABLET PO SCH (10:20)
[2018-06-02] MEDS: FLUTICASONE NASAL SPRAY 50 MCG/SPRY 120 SPRAY/16 GM NASL SCH ×2 (10:20→22:03)
--- NOTE | 2018-06-02 12:31 | PDOC PROGRESS REPORT ---
Subjective Subjective:: This is a 1 years old [place] origin female patient with past medical history of hypertension, hyperlipidemia, hypothyroidism and hypoparathyroidism presented with chief complaint of cough and shortness of breath of 6 days duration. The cough is occasionally productive of yellowish sputum. 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 Chest x-ray and CT scan of the chest shows extensive left upper lobe infiltration with cavitation. Since the imaging finding is suspicious for tuberculosis patient put on isolation and droplet precaution. Lab studies including QuantiFERON, sputum culture for AFB, ESR and CRP, and acid -fast bacilli staining and blood culture for Mycobacterium requested. Patient is already being treated for pneumonia with cefepime but I empirically started her on INH, rifampicin, ethambutol and pyrizinamide. 2 sets of sputum stain are negative for acid-fast bacilli and the third is pending. Please discontinue isolation and antituberculous treatment, in consultation with Dr. Manjit Mcfadden, 3 sets of sputum are negative for acid-fast bacilli. Reason For Visit: SEPSIS, PNEUMONIA Physical Exam Vital Signs: Temp Pulse Resp BP Pulse Ox 98.9 F 89 12 135/55 H 96 06/02/18 07:45 06/02/18 09:06 06/02/18 09:06 06/02/18 07:45 06/02/18 09:06 Pulse Oximeter Continuous Start: 05/28/18 20: 07 Freq: RTQ4 Status: Active Document 06/02/18 09:06 [facility] [place] 06/02/18 09:26 [facility] [id number] Pulse Oximetry Assessment Oxygen Saturation (92-100) 96 Oxygen Delivery Method Room Air Fraction of Inspired Oxygen (FIO2) 21 Equipment Usage Equipment in Use Continuous Pulse Oximeter 24 Hour Charge Charge Now Continuous SpO2 Machine # N 6 Intake & Output 06/01/18 06/02/18 06/03/18 06:59 06:59 06:59 Intake Total 1000 873 Output Total 1250 8025 Balance -250 -802 Weight 63.6 kg 63.4 kg General appearance: PRESENT: no acute distress, well-developed, well-nourished Head exam: PRESENT: atraumatic, normocephalic Eye exam: PRESENT: conjunctiva pink, EOMI, PERRLA. ABSENT: scleral icterus Ear exam: PRESENT: normal external ear exam Mouth exam: PRESENT: moist, tongue midline Neck exam: ABSENT: carotid bruit, JVD, lymphadenopathy, thyromegaly Respiratory exam: PRESENT: clear to auscultation jasmin. ABSENT: rales, rhonchi, wheezes Cardiovascular exam: PRESENT: RRR. ABSENT: diastolic murmur, rubs, systolic murmur Pulses: PRESENT: normal dorsalis pedis pul Vascular exam: PRESENT: normal capillary refill GI/Abdominal exam: PRESENT: normal bowel sounds, soft. ABSENT: distended, guarding, mass, organolmegaly, rebound, tenderness Rectal exam: PRESENT: deferred Extremities exam: PRESENT: full ROM. ABSENT: calf tenderness, clubbing, pedal edema Neurological exam: PRESENT: alert, awake, oriented to person, oriented to place , oriented to time, oriented to situation, CN II-XII grossly intact. ABSENT: motor sensory deficit Psychiatric exam: PRESENT: appropriate affect, normal mood. ABSENT: homicidal ideation, suicidal ideation Skin exam: PRESENT: dry, intact, warm. ABSENT: cyanosis, rash Results Laboratory Results: 05/31/18 04:26 05/31/18 04:26 05/30/18 06:07 Sputum Gram Stain - Final 05/30/18 06:07 Sputum Sputum Culture - Final NO GROWTH 2 DAYS 05/30/18 06:07 Sputum AFB Smear Concentration - Final 05/30/18 06:07 Sputum Acid Fast Bacilli Smear - Final 05/29/18 17:06 Blood AFB Smear Concentration - Final Impressions: Chest CT 05/29/18 00:00 IMPRESSION: Dense cavitary pneumonia in the left upper lobe with evidence of endobronchial spread to the lingula and left lower lobe. Trace left pleural effusion. Although this could be aspiration or community acquired pneumonia, tuberculosis is also a possibility. This finding was discussed with the patient 's hospitalist caregiver, 0815 hours 05/29/2018. Chest X-Ray 06/01/18 00:00 IMPRESSION: Unchanged left upper lobe opacity and small left pleural effusion. Assessment & Plan - Diagnosis (1) Left upper lobe cavitary lesion Is this a current diagnosis for this admission?: Yes Plan: Continue cefepime and antituberculous regimen. Lab tested for pulmonary TB are pending. Keep isolation and droplet precaution. (2) Hypothyroidism Qualifiers: Hypothyroidism type: acquired Qualified Code(s): E03.9 - Hypothyroidism, unspecified Is this a current diagnosis for this admission?: Yes Plan: Continue home medication (3) Hyperlipidemia Qualifiers: Hyperlipidemia type: unspecified Qualified Code(s): E78.5 - Hyperlipidemia , unspecified Is this a current diagnosis for this admission?: Yes Plan: Continue Lipitor (4) Hypoparathyroidism Is this a current diagnosis for this admission?: Yes Plan: Continue home medication.
--- NOTE | 2018-06-02 17:56 | Progress Note ---
Provider Note Provider Note: ID Consult Note Reviewed patient's chart. Pt not seen or examined. Ms Ballesteros is a 78 year old woman who has a remote history of pulmonary TB treatment in the 1970s who presented on 05/28/18 with 3 days of fever, SOB and cough occasionally productive of yellowish sputum per H&P. She had fever overnight between 05/28 and 05/29 up to 102.6 F. CXR showed an extensive KAROLYN infiltrate. CT scan of the chest revealed a dense KAROLYN pneumonia a small L sided effusion and question of cavitation along the inferior aspect of the infiltrate. Cefepime and IV Levaquin were empirically started on admission on 05/28, followed by the addition of antituberculous therapy on 05/29/18. Pt had last fever 102.7 on 05/30 and none since. The patient has been on airborne isolation. She had 2 sets of blood culture on admission that are negative x 4 days at this point. Sputum was sent on 05/30 for routine bacterial culture that has been negative and Gram stain that showed 1+ PMNs and few epithelial cells but no bacteria. AFB smear x 2 has been negative. A third AFB smear was also sent and is in process. Impression/Recommendations KAROLYN pneumonia - Pt's CT findings are potentialy compatible with TB but could also be due to other etiologies. Pts with TB do not have an acute presentation as was described for this patient with 3 days of symptoms prior to admission. The Quantiferon that is in process will not add much information. Quantiferon does not distinguish between latent and active TB and only confirms TB exposure, which is already known in this patient since she admits to having a history of TB in the past. Unfortunately, it is difficult to know whether the lack of typical bacteria on Gram stain and culture was related to antibiotic exposure prior to the sample being obtained. Pt defervesced, but being treated for both TB empirically and typical bacterial causes of pneumonia also makes it more difficult to know what the patient is actually responding to. - F/u 3rd AFB smear; defer to the hospital's infection control policy and preventionists regarding continued isolation while hospitalized if AFB smear x 3 - In absence of stronger information to suggest active TB dx and acute onset of symptoms suggest a competing typical bacterial etiology, recommend discontinuing antituberculous therapy. - Recommend discontinuing Levaquin and continuing IV cefepime to complete a total of 7 days of treatment. Pt is currently on day 5. Rashaad Thrasher MD [facility] Infectious Diseases pager [phone]
[2018-06-02] MEDS: CEFEPIME 2 GM/D5W RTU 2 GM/50 ML RTUPB IV SCH (23:02)
[2018-06-03] MEDS: IPRATROPIUM/ALBUTEROL 0.5-2.5 MG/3 ML AMPUL NEB SCH ×4 (02:02→19:43)
[2018-06-03] MEDS: HEPARIN SOD (PORCINE) 5,000 UNIT/ML 1 ML SYRINGE SUBCUT SCH ×3 (05:23→21:38)
[2018-06-03] MEDS: RIFAMPIN 300 MG CAPSULE PO SCH (08:02)
[2018-06-03] MEDS: ISONIAZID 300 MG TABLET PO SCH (09:55)
[2018-06-03] MEDS: FLUTICASONE NASAL SPRAY 50 MCG/SPRY 120 SPRAY/16 GM NASL SCH ×2 (09:55→21:38)
[2018-06-03] MEDS: ETHAMBUTOL HCL 400 MG TABLET PO SCH (09:55)
--- NOTE | 2018-06-03 16:44 | PDOC PROGRESS REPORT ---
Subjective Progress Note for:: 06/03/18 Subjective:: The patient is without new complaints. Reason For Visit: SEPSIS, PNEUMONIA Physical Exam Vital Signs: Temp Pulse Resp BP Pulse Ox 98.3 F 95 12 138/61 H 96 06/03/18 07:50 06/03/18 14:00 06/03/18 13:09 06/03/18 07:50 06/03/18 13:09 Pulse Oximeter Continuous Start: 05/28/18 20: 07 Freq: RTQ4 Status: Active Document 06/03/18 13:09 [facility] [place]: 06/03/18 13:21 [facility] [id number] Pulse Oximetry Assessment Oxygen Saturation (92-100) 96 Oxygen Delivery Method Room Air Fraction of Inspired Oxygen (FIO2) 21 Equipment Usage Equipment in Use Continuous SpO2 Machine # N 9 Intake & Output 06/02/18 06/03/18 06/04/18 06:59 06:59 06:59 Intake Total 873 287 Output Total 1675 1250 Balance -802 -963 Weight 63.4 kg 62.9 kg General appearance: PRESENT: no acute distress, well-developed, well-nourished Head exam: PRESENT: atraumatic Respiratory exam: PRESENT: other - No increased work of breathing. No wheezes, rales, or rhonchi. No tactile fremitus. Cardiovascular exam: PRESENT: RRR, other - No lateral PMI. No thrills.. ABSENT : gallop, rubs, systolic murmur Vascular exam: PRESENT: normal capillary refill GI/Abdominal exam: PRESENT: normal bowel sounds, soft. ABSENT: hernia, organolmegaly, tenderness Rectal exam: PRESENT: deferred Gentrourinary exam: PRESENT: lesions. ABSENT: erythema Extremities exam: PRESENT: full ROM. ABSENT: calf tenderness, clubbing, joint swelling, tenderness Neurological exam: PRESENT: oriented to time, abnormal gait, CN II-XII grossly intact, normal gait. ABSENT: oriented to situation, ataxia, motor sensory deficit Psychiatric exam: PRESENT: appropriate affect, normal mood Skin exam: PRESENT: dry, intact, warm Results Laboratory Results: 05/31/18 04:26 05/31/18 04:26 05/29/18 17:06 Blood AFB Smear Concentration - Final 05/29/18 17:06 Blood Acid Fast Bacilli Smear - Final Impressions: Chest CT 05/29/18 00:00 IMPRESSION: Dense cavitary pneumonia in the left upper lobe with evidence of endobronchial spread to the lingula and left lower lobe. Trace left pleural effusion. Although this could be aspiration or community acquired pneumonia, tuberculosis is also a possibility. This finding was discussed with the patient 's hospitalist caregiver, 0815 hours 05/29/2018. Chest X-Ray 06/01/18 00:00 IMPRESSION: Unchanged left upper lobe opacity and small left pleural effusion. Assessment & Plan - Diagnosis (1) Pancreatitis, acute Qualifiers: Pancreatitis type: unspecified pancreatitis type Is this a current diagnosis for this admission?: Yes Plan: Will check right upper ultrasound and lipid panel. The pancreatitis in this patient may be due to his alcoholicsm. - Time Time Spent with patient: 25-34 minutes Smoking Cessation Education: 3 to 10 minutes Medications reviewed and adjusted accordingly: Yes Anticipated discharge: Home
--- NOTE | 2018-06-03 17:28 | PDOC PROGRESS REPORT ---
Subjective Progress Note for:: 06/03/18 Subjective:: The patient is without new complaints. Reason For Visit: SEPSIS, PNEUMONIA Physical Exam Vital Signs: Temp Pulse Resp BP Pulse Ox 98.8 F 85 18 148/66 H 95 06/03/18 16:23 06/03/18 16:23 06/03/18 16:23 06/03/18 16:23 06/03/18 16:23 Pulse Oximeter Continuous Start: 05/28/18 20: 07 Freq: RTQ4 Status: Active Document 06/03/18 13:09 [facility] [place] 06/03/18 13:21 [facility] [id number] Pulse Oximetry Assessment Oxygen Saturation (92-100) 96 Oxygen Delivery Method Room Air Fraction of Inspired Oxygen (FIO2) 21 Equipment Usage Equipment in Use Continuous SpO2 Machine # N 9 Intake & Output 06/02/18 06/03/18 06/04/18 06:59 06:59 06:59 Intake Total 873 287 Output Total 1675 1250 Balance -802 -963 Weight 63.4 kg 62.9 kg General appearance: PRESENT: no acute distress, cooperative Respiratory exam: PRESENT: rales, rhonchi, other - No increased work of breathing. No wheezes, rales, or rhonchi. No tactile fremitus. Cardiovascular exam: PRESENT: RRR. ABSENT: gallop, rubs, systolic murmur Pulses: PRESENT: normal femoral pulses, normal dorsalis pedis pul GI/Abdominal exam: PRESENT: soft. ABSENT: hernia, mass, organolmegaly, tenderness Rectal exam: PRESENT: deferred Musculoskeletal exam: ABSENT: deformity, dislocation, tenderness Neurological exam: PRESENT: alert, awake, oriented to person, oriented to place , oriented to time, oriented to situation, CN II-XII grossly intact. ABSENT: motor sensory deficit Psychiatric exam: PRESENT: appropriate affect, normal mood Skin exam: PRESENT: dry, intact, warm Results Laboratory Results: 05/31/18 04:26 05/31/18 04:26 05/29/18 17:06 Blood AFB Smear Concentration - Final 05/29/18 17:06 Blood Acid Fast Bacilli Smear - Final Impressions: Chest CT 05/29/18 00:00 IMPRESSION: Dense cavitary pneumonia in the left upper lobe with evidence of endobronchial spread to the lingula and left lower lobe. Trace left pleural effusion. Although this could be aspiration or community acquired pneumonia, tuberculosis is also a possibility. This finding was discussed with the patient 's hospitalist caregiver, 0815 hours 05/29/2018. Chest X-Ray 06/01/18 00:00 IMPRESSION: Unchanged left upper lobe opacity and small left pleural effusion. Assessment & Plan - Diagnosis (1) Pancreatitis, acute Qualifiers: Pancreatitis type: unspecified pancreatitis type Is this a current diagnosis for this admission?: Yes (2) Hyperlipidemia Qualifiers: Hyperlipidemia type: unspecified Qualified Code(s): E78.5 - Hyperlipidemia , unspecified Is this a current diagnosis for this admission?: Yes (3) Hypothyroidism Qualifiers: Hypothyroidism type: acquired Qualified Code(s): E03.9 - Hypothyroidism, unspecified Is this a current diagnosis for this admission?: Yes (4) Left upper lobe cavitary lesion Is this a current diagnosis for this admission?: Yes (5) Pneumonia Qualifiers: Pneumonia type: due to unspecified organism Laterality: left Lung location: upper lobe of lung Qualified Code(s): J18.1 - Lobar pneumonia, unspecified organism Is this a current diagnosis for this admission?: Yes Plan: AFB x 3 negative. Will stoop tb meds and remove droplet precautions. (6) Sepsis Qualifiers: Sepsis type: sepsis due to unspecified organism Qualified Code(s): A41.9 - Sepsis, unspecified organism Is this a current diagnosis for this admission?: Yes Plan: Resolved. - Time Time Spent with patient: 25-34 minutes Medications reviewed and adjusted accordingly: Yes
[2018-06-03] MEDS: LEVOFLOXACIN 750 MG/D5W RTU 750 MG/150 ML RTUPB IV SCH (17:47)
[2018-06-03] MEDS: CEFEPIME 2 GM/D5W RTU 2 GM/50 ML RTUPB IV SCH (21:38)
[2018-06-04] MEDS: IPRATROPIUM/ALBUTEROL 0.5-2.5 MG/3 ML AMPUL NEB SCH ×4 (01:00→20:14)
[2018-06-04] MEDS: HEPARIN SOD (PORCINE) 5,000 UNIT/ML 1 ML SYRINGE SUBCUT SCH ×3 (05:31→22:10)
[2018-06-04] MEDS: FLUTICASONE NASAL SPRAY 50 MCG/SPRY 120 SPRAY/16 GM NASL SCH ×2 (09:42→22:11)
--- NOTE | 2018-06-04 16:27 | PDOC PROGRESS REPORT ---
Subjective Progress Note for:: 06/04/18 Subjective:: The patient is without new complaints. She states that she is feeling well. Reason For Visit: SEPSIS, PNEUMONIA Physical Exam Vital Signs: Temp Pulse Resp BP Pulse Ox 98.6 F 97 18 133/60 H 93 06/04/18 15:26 06/04/18 15:26 06/04/18 15:26 06/04/18 15:26 06/04/18 15:26 Pulse Oximeter Continuous Start: 05/28/18 20: 07 Freq: RTQ4 Status: Active Document 06/04/18 12:10 [facility] [place] (Rec: 06/04/18 12:11 [facility] [place] [id number]) Pulse Oximetry Assessment Oxygen Saturation (92-100) 93 Oxygen Delivery Method Room Air Fraction of Inspired Oxygen (FIO2) 21 Equipment Usage Equipment in Use Continuous SpO2 Machine # N 9 Intake & Output 06/03/18 06/04/18 06/05/18 06:59 06:59 06:59 Intake Total 287 1040 240 Output Total 1250 1600 800 Balance -963 -560 -560 Weight 62.9 kg 61.5 kg General appearance: PRESENT: no acute distress, cooperative, well-developed, well-nourished Pulses: PRESENT: normal carotid pulses GI/Abdominal exam: PRESENT: normal bowel sounds, soft. ABSENT: hernia, mass, organolmegaly, tenderness Rectal exam: PRESENT: deferred Extremities exam: ABSENT: clubbing, joint swelling, pedal edema, tenderness Musculoskeletal exam: PRESENT: normal inspection. ABSENT: deformity, dislocation Neurological exam: PRESENT: alert, awake, oriented to person, oriented to place , oriented to time, oriented to situation, CN II-XII grossly intact. ABSENT: motor sensory deficit Psychiatric exam: PRESENT: appropriate affect, normal mood Skin exam: PRESENT: dry, intact, warm Results Laboratory Results: 05/31/18 04:26 05/31/18 04:26 Impressions: Chest CT 05/29/18 00:00 IMPRESSION: Dense cavitary pneumonia in the left upper lobe with evidence of endobronchial spread to the lingula and left lower lobe. Trace left pleural effusion. Although this could be aspiration or community acquired pneumonia, tuberculosis is also a possibility. This finding was discussed with the patient 's hospitalist caregiver, 0815 hours 05/29/2018. Chest X-Ray 06/01/18 00:00 IMPRESSION: Unchanged left upper lobe opacity and small left pleural effusion. Assessment & Plan - Diagnosis (1) Pancreatitis, acute Qualifiers: Pancreatitis type: unspecified pancreatitis type Is this a current diagnosis for this admission?: Yes (2) Hyperlipidemia Qualifiers: Hyperlipidemia type: unspecified Qualified Code(s): E78.5 - Hyperlipidemia , unspecified Is this a current diagnosis for this admission?: Yes Plan: Statin. (3) Hypoparathyroidism Is this a current diagnosis for this admission?: Yes Plan: Monitor electrolytes. Continue home medications. (4) Hypothyroidism Qualifiers: Hypothyroidism type: acquired Qualified Code(s): E03.9 - Hypothyroidism, unspecified Is this a current diagnosis for this admission?: Yes Plan: Continue levothyroxine. (5) Left upper lobe cavitary lesion Is this a current diagnosis for this admission?: Yes Plan: Continue cefepime. AFB x 3 negative. (6) Pneumonia Qualifiers: Pneumonia type: due to unspecified organism Laterality: left Lung location: upper lobe of lung Qualified Code(s): J18.1 - Lobar pneumonia, unspecified organism Is this a current diagnosis for this admission?: Yes Plan: AFB x 3 negative. Tb meds and droplet precautions discontinued. Continue cefepime (7) Sepsis Qualifiers: Sepsis type: sepsis due to unspecified organism Qualified Code(s): A41.9 - Sepsis, unspecified organism Is this a current diagnosis for this admission?: Yes Plan: Resolved. - Time Time Spent with patient: 35 or more minutes Medications reviewed and adjusted accordingly: Yes
[2018-06-04] MEDS: CEFEPIME 2 GM/D5W RTU 2 GM/50 ML RTUPB IV SCH (22:10)
[2018-06-05] MEDS: IPRATROPIUM/ALBUTEROL 0.5-2.5 MG/3 ML AMPUL NEB SCH ×2 (02:08→08:05)
[2018-06-05] MEDS: HEPARIN SOD (PORCINE) 5,000 UNIT/ML 1 ML SYRINGE SUBCUT SCH (05:33)
[2018-06-05 07:55] VITALS: BP 125/51
[2018-06-05] MEDS: FLUTICASONE NASAL SPRAY 50 MCG/SPRY 120 SPRAY/16 GM NASL SCH (09:00)
--- NOTE | 2018-06-05 14:43 | PDOC DISCHARGE SUMMARY ---
General - Admit/Disc Date/PCP Admission Date/Primary Care Provider: 05/28/18 20:15 CLARISSA HASTINGS MD Discharge Date: 06/05/18 - Discharge Diagnosis (1) Pancreatitis, acute Is this a current diagnosis for this admission?: Yes (2) Hyperlipidemia Is this a current diagnosis for this admission?: Yes (3) Hypoparathyroidism Is this a current diagnosis for this admission?: Yes (4) Hypothyroidism Is this a current diagnosis for this admission?: Yes (5) Left upper lobe cavitary lesion Is this a current diagnosis for this admission?: Yes (6) Pneumonia Is this a current diagnosis for this admission?: Yes (7) Sepsis Is this a current diagnosis for this admission?: Yes - Additional Information Resuscitation Status: Full Code Discharge Diet: Regular Discharge Activity: Activity As Tolerated, No Driving Prescriptions: Albuterol Sulfate [Albuterol Sulfate 2.5mg/3 mL] 2.5 mg IH Q4 PRN #1 inhaler PRN Reason: Shortness Of Breath Fluticasone Propionate [Flonase Nasal Rimforest 50 Mcg/Rimforest 16 gm] 2 spray NASL Q12 #1 spray.pump Levofloxacin [Levaquin 750 mg Tablet] 750 mg PO DAILY #2 tab Home Medications: Pravastatin Sodium [Pravachol] 10 mg PO QHS 05/28/18 Albuterol Sulfate [Albuterol Sulfate 2.5mg/3 mL] 2.5 mg IH Q4 PRN #1 inhaler Fluticasone Propionate [Flonase Nasal Rimforest 50 Mcg/Rimforest 16 gm] 2 spray NASL Q12 #1 spray.pump 06/05/18 Levofloxacin [Levaquin 750 mg Tablet] 750 mg PO DAILY #2 tab 06/05/18 History of Present Illness History of Present Illness: FARAZ MERRILL is a 78 year old female with past medical history of hyperparathyroidism and remote pulmonary tuberculosis status post treatment, presents with 3 days of fever, shortness of breath and cough. In the emergency room she is found to have a left upper lobe infiltrate and fever of 102.6. She started on empiric antibiotics and referred to the hospitalist for admission. She denies infectious contacts, recent travel, sinusitis, aspiration or GERD. No recent antibiotic use. Hospital Course Hospital Course: The patient was admitted to a medical bed on droplet precautions. She was started on medications to address a possible tb infection. AFB x 3 were taken. She was also started on IV antibiotics to cover for anaerobic or gram negative organisms. AFB x 3 were negative and tb medications were stopped. She completed 7 days of IV cefepime and 5 days of IV Levaquin. She is doing well and is on room air. She will be discharged to home in fair condition. Physical Exam Vital Signs: Temp Pulse Resp BP Pulse Ox 98.6 F 81 16 125/51 L 94 06/05/18 10:15 06/05/18 10:15 06/05/18 10:15 06/05/18 10:15 06/05/18 10:15 Pulse Oximeter Continuous Start: 05/28/18 20: 07 Freq: RTQ4 Status: Discharge Document 06/05/18 11:43 [facility] [place]Rec: 06/05/18 11:43 [facility] [id number] Pulse Oximetry Assessment Equipment Usage Equipment Discontinued Continuous SpO2 Machine # N 9 Additional RT Notes Other pt has discharged Intake & Output 06/04/18 06/05/18 06/06/18 06:59 06:59 06:59 Intake Total 1040 888 Output Total 1600 1700 Balance -560 -812 Weight 61.5 kg 61.3 kg General appearance: PRESENT: no acute distress, cooperative Respiratory exam: PRESENT: other - No increased work of breathing. No wheezes, rales, or rhonchi. No tactile fremitus. Cardiovascular exam: PRESENT: RRR, other - No lateral PMI. No thrills.. ABSENT : gallop, rubs, systolic murmur GI/Abdominal exam: PRESENT: normal bowel sounds, soft. ABSENT: hernia, mass, organolmegaly, tenderness Neurological exam: PRESENT: alert, awake, oriented to person, oriented to place , oriented to time, oriented to situation, CN II-XII grossly intact. ABSENT: motor sensory deficit Psychiatric exam: PRESENT: appropriate affect, normal mood Skin exam: PRESENT: dry, intact, warm Results Laboratory Results: 05/31/18 04:26 05/31/18 04:26 06/02/18 21:30 Sputum Gram Stain - Final 06/02/18 21:30 Sputum Sputum Culture - Final C.albicans/C.dubliniensis Greatly Reduced Normal Ashlyn 06/02/18 21:30 Sputum AFB Smear Concentration - Final 06/02/18 21:30 Sputum Acid Fast Bacilli Smear - Final 05/31/18 06:12 Sputum AFB Smear Concentration - Final 05/31/18 06:12 Sputum Acid Fast Bacilli Smear - Final Impressions: Chest CT 05/29/18 00:00 IMPRESSION: Dense cavitary pneumonia in the left upper lobe with evidence of endobronchial spread to the lingula and left lower lobe. Trace left pleural effusion. Although this could be aspiration or community acquired pneumonia, tuberculosis is also a possibility. This finding was discussed with the patient 's hospitalist caregiver, 0815 hours 05/29/2018. Chest X-Ray 06/01/18 00:00 IMPRESSION: Unchanged left upper lobe opacity and small left pleural effusion. Qualifiers - * PATIENT BEING DISCHARGED WITH ANY OF THE FOLLOWING DIAGNOSIS: No Plan Discharge Plan: The patient will be discharged to home in fair condition to follow up with her PCP in one week. Time Spent: Greater than 30 Minutes
== END 2018-06-05 11:27 | disposition home or self-care (01) | DRG 195 ==
LOC: ER 17:41 → EH 20:15 → 4S 22:10 → 3N 05-29 18:54
PROVIDERS: ADMIT Internal Medicine; ATTEND Internal Medicine
DX: J18.9 Pneumonia, unspecified organism (principal); E21.3 Hyperparathyroidism, unspecified; E03.9 Hypothyroidism, unspecified; E78.5 Hyperlipidemia, unspecified; K59.00 Constipation, unspecified; Z82.49 Family history of ischemic heart disease and other diseases of the circulatory system; Z88.0 Allergy status to penicillin; Z86.11 Personal history of tuberculosis; Z90.710 Acquired absence of both cervix and uterus; Z90.49 Acquired absence of other specified parts of digestive tract; Z79.899 Other long term (current) drug therapy
CPT/HCPCS: 36415; 71045; 71250; 80048; 80053; 80076; 81001; 82803; 82962; 83605; 85025; 85610; 85652; 86140; 86480; 87015; 87040; 87070; 87086; 87088; 87116; 87205; 87206; 87804; 93005; 93010; 94640; 94762; 94799; 96365; 96366; 96375; 99284; J0692; J1644; J1956; J2405; J3490; J7030; J7620

== ENCOUNTER → 2018-12-03 | Outpatient (CLI) | payer MEDICARE, OTHER ==
--- NOTE | 2018-12-03 14:43 | WOMENS IMAGING REPORT ---
EXAM DESCRIPTION: 3D SCREENING MAMMO BILAT COMPLETED DATE/TIME: 12/03/2018 2:03 pm REASON FOR STUDY: ROUTINE 3D BILATERAL SCREENING,Z12.31 Z12.31 ENCNTR SCREEN MAMMOGRAM FOR MALIGNAN T NEOPLASM OF HIEU COMPARISON: 2008, [id number] TECHNIQUE: Standard craniocaudal and mediolateral oblique views of each breast recorded using digita l acquisition and breast tomosynthesis. LIMITATIONS: None. FINDINGS: No masses, calcifications or architectural distortion. No areas of suspicion. Read with the assistance of CAD. .[facility] - R2 Cenova Version 1.3 .[facility] - R2 Cenova Version 2.1 .[facility] - R2 Cenova Version 2.4 .[facility] [place] R2 Cenova Version 2.4 .[facility] - R2 Wireless Team Member Version 9.2 IMPRESSION: NORMAL MAMMOGRAM. BIRADS 1. BREAST DENSITY: c. The breasts are heterogeneously dense, which may obscure small masses. BIRAD: 1 NEGATIVE RECOMMENDATION: ROUTINE SCREENING COMMENT: The patient has been notified of the results by letter per SA requirements. Additional no tification policies are in place for contacting patient with suspicious or incomplete findings. Quality ID #225: The [employer] recommends an annual screening mammogram for women aged 40 years or over. This facility utilizes a reminder system to ensure that all patients receive reminder letters, and/or direct phone calls for appointments. This includes reminders for routine scr eening mammograms, diagnostic mammograms, or other Breast Imaging Interventions when appropriate. Th is patient will be placed in the appropriate reminder system. The [employer] (ACR) has developed recommendations for screening MRI of the breast s in certain patient populations, to be used in conjunction with mammography. Breast MRI surveillanc e may be appropriate for women with more than 20% lifetime risk of developing breast cancer as deter mined by genetic testing, significant family history of the disease, or history of mantle radiation f or Hodgkins Disease. ACR Practice Guidelines 2008. DBT Technology DBT is a type of tomographic mammography. With conventional mammography, overlapping breast tissue ma y make lesions difficult to detect, even with good compression. DBT uses an x-ray tube that rotates a round the breast, taking images at different angles. These images are then combined to create thin sl ices of the breast that the radiologist can view as a 3D reconstruction. The [employer] unit can perform full-field digital mammograms (2D imaging); or DBT (3D imaging); or both, in a combination mode that quickly performs both the mammogram and the tomosynthesis scan while the breast is still compressed. PQRS 6045F: Fluoroscopic imaging is not utilized for breast tomosynthesis. TECHNICAL DOCUMENTATION: FINDING NUMBER: (1) ASSESSMENT: (1) JOB ID: [id number] [employer]- All Rights Reserved Reading location - IP/workstation name: [email or web address]
== END ==
LOC: WI 13:50
PROVIDERS: ATTEND Internal Medicine
DX: Z12.31 Encounter for screening mammogram for malignant neoplasm of breast (principal)
CPT/HCPCS: 77063; 77067

== ENCOUNTER → 2019-02-12 | Outpatient (CLI) | payer MEDICARE, OTHER ==
--- NOTE | 2019-02-12 15:33 | RADIOLOGY REPORT (SQ) ---
EXAM DESCRIPTION: NM PARATHYROID IMAGING COMPLETED DATE/TIME: 02/12/2019 1:03 pm REASON FOR STUDY: PRIMARY HYPERPARATHYROIDISM E21.0 PRIMARY HYPERPARATHYROIDISM COMPARISON: None. RADIONUCLIDE AND DOSE: 20 millicuries Tc-99m Sestamibi. The route of agent administration: Intravenous ADDITIONAL DRUGS AND DOSES: None. TECHNIQUE: Early and delayed images of the neck acquired following radionuclide administration. LIMITATIONS: None. FINDINGS: Thyroid: Normal size. Homogeneous activity. Normal washout. No focal lesions. Parathyroid: There is a small focus of retained activity at the lower pole of the left thyroid gland on the delayed images. Other: No other significant findings. IMPRESSION: There is suggestion of enlarged parathyroid gland at the level of the lower pole of the left lobe of the thyroid. TECHNICAL DOCUMENTATION: JOB ID: [id number] [employer]- All Rights Reserved Reading location - IP/workstation name: [email or web address]
== END ==
LOC: RAD 09:31
PROVIDERS: ATTEND Otolaryngology
DX: E21.0 Primary hyperparathyroidism (principal); D35.1 Benign neoplasm of parathyroid gland
CPT/HCPCS: 78070; A9500; Q9969

== ENCOUNTER → 2019-07-01 | Outpatient (CLI) | payer MEDICARE, OTHER ==
[2019-07-01 14:51] LABS: ALBUMIN 4.1 g/dL (3.5-5.0); CALCIUM 10.6 mg/dL (8.4-10.2); PHOSPHORUS 3.1 mg/dL (2.5-4.5)
== END ==
LOC: OD 13:58
PROVIDERS: ATTEND Otolaryngology
DX: E04.1 Nontoxic single thyroid nodule (principal)
CPT/HCPCS: 36415; 82040; 82306; 82310; 83735; 83970; 84100

== ENCOUNTER 2019-07-29 05:14 | Day surgery (SDC) | payer MEDICARE, OTHER ==
[2019-07-21 09:49] LABS: HEMATOCRIT 35.7 % (36.0-47.0); HEMOGLOBIN 11.8 g/dL (12.0-15.5); MEAN CORPUSCULAR HEMOGLOBIN 28.5 pg (27.0-33.4); MEAN CORPUSCULAR HGB CONC 32.9 g/dL (32.0-36.0); MEAN CORPUSCULAR VOLUME 87 fl (80-97); PLATELET COUNT 284 10^3/uL (150-450); RED BLOOD COUNT 4.12 10^6/uL (3.72-5.28)
[2019-07-21 10:16] LABS: ANION GAP 9 (5-19); BLOOD UREA NITROGEN 19 mg/dL (7-20); CALCIUM 10.4 mg/dL (8.4-10.2); CARBON DIOXIDE 25 mmol/L (22-30); CHLORIDE 108 mmol/L (98-107); GLUCOSE 103 mg/dL (75-110); POTASSIUM 4.4 mmol/L (3.6-5.0)
--- NOTE | 2019-07-21 13:30 | EKG REPORT ---
SEVERITY:- BORDERLINE ECG - SINUS RHYTHM NONSPECIFIC ST-T CHANGES- INFERIOR LEADS : Confirmed by: Shayne Sim MD 21-Jul-2019 13:30:05
[~2019-07-29 05:14] MED LIST: CEFAZOLIN SODIUM 2 GM in DEXTROSE 5%-WATER 100 ML IV PRN
[2019-07-29] MEDS ORDERED: LIDOCAINE 2%/EPINEPHRINE INJ 1.7 ML CARTRIDGE ONE (07:15)
[2019-07-29] MEDS ORDERED: BUPIVACAINE HCL 0.5%/EPI 1:200000 INJ 1.8 ML CARTRIDGE ONE (07:15)
[2019-07-29] MEDS ORDERED: OXYMETAZOLINE HCL 0.05% NASAL SPRAY 15 ML BOTTLE ONE (07:18)
[2019-07-29] MEDS ORDERED: ROCURONIUM BROMIDE INJ 50 MG/5 ML VIAL IV ONE (08:00)
[2019-07-29] MEDS ORDERED: DEXAMETHASONE SOD PHOSPHATE INJ 4 MG/1 ML VIAL ONE (08:00)
[2019-07-29] MEDS ORDERED: GLYCOPYRROLATE 1 MG/5 ML VIAL ONE (08:00)
[2019-07-29] MEDS ORDERED: PHENYLEPHRINE HCL INJ/PF 10 MG/1 ML SDV ONE (08:00)
[2019-07-29] MEDS ORDERED: SUCCINYLCHOLINE CHLORIDE INJ 200 MG/10 ML VIAL ONE (08:00)
[2019-07-29] MEDS ORDERED: ONDANSETRON HCL INJ/PF 4 MG/2 ML SDV ONE (08:00)
[2019-07-29] MEDS ORDERED: FENTANYL CITRATE INJ/PF 100 MCG/2 ML AMPUL IV PRN ×3 (08:04)
[2019-07-29] MEDS ORDERED: MORPHINE SULFATE 10 MG/ML INJ IV PRN (08:04)
[2019-07-29] MEDS ORDERED: DIPHENHYDRAMINE HCL 50 MG/ML VIAL IV PRN (08:04)
[2019-07-29] MEDS ORDERED: MEPERIDINE HCL/PF INJ 25 MG/1 ML DISP.SYRIN IV PRN (08:04)
[2019-07-29] MEDS ORDERED: OXYCODONE-ACETAMINOPHEN 5-325 MG TABLET PO PRN ×2 (08:04)
[2019-07-29] MEDS ORDERED: ONDANSETRON HCL INJ/PF 4 MG/2 ML SDV IV PRN ×2 (08:22→10:28)
--- NOTE | 2019-07-29 10:01 | Operative Report ---
Operative Report-[facility] Operative Report: Date: 29 July 2019 History: Patient with history of primary hyperparathyroidism. A 4D CT scan r evealed a parathyroid adenoma located inferior to the lower pole of the left lobe of the thyroid. PTH prior to surgery was 184. Preoperative Diagnosis: 1. Primary hyperparathyroidism 2. Parathyroid adenoma, left side Postoperative Diagnosis: Same as above Procedure: 1. Parathyroidectomy 2. Flexible fiber optic nasopharyngolaryngoscope Surgeon: Migue Whitaker MD, FACS. [facility] Assisting surgeon: Vikram Buitrago DO Anesthesia: General using a laryngeal EMG tube Description of the procedure: After receiving informed consent, the patient was brought to the operating room and play supine on the operating room table. After successful induction and intubation using a laryngeal EMG tube, a shoulder roll was place to extend the neck. The nerve integrity monitor was calibrated and found to be functioning normally. The planned incision site was marked with a surgical pen and infiltrated with 2% Lidocaine with 1 to 100,000 epinephrine. The patient was then prepped and draped in a sterile fashion. A 15 blade was used to make the incision through the skin, subcutaneous layer and platysma. Using Bovee electrocautery, sub platysmal flaps were elevated superiorly and inferiority. Midline was identified and the strap muscles were . The left sternothyroid muscle was identified and from the thyroid lobe. The dissection proceeded inferiorly where we identified the inferior pole of the left lobe of the thyroid. Sected inferior to that and encountered the parathyroid adenoma. This was carefully removed and sent to pathology who confirmed the diagnosis of hypercellular parathyroid tissue consistent with parathyroid adenoma. The left recurrent laryngeal nerve was identified and still made with the press probe and found to be intact. 20 minutes post excisio n of the parathyroid adenoma, a PTH level was sent. The result was 22. The preoperative PTH was 184. This confirmed that the parathyroid adenoma had been successfully removed. The wound was irrigated with copious amounts of normal Saline. No bleeding was noted. Surgical was placed into the thyroid bed. The wound was closed in layers. The strap muscles, platysma and subcutaneous tissue were closed using 4-0 Monocryl. The dermal layer was closed using 4-0 Monocryl. Dermabond, mastisol and steristrips were then applied. A small dressing placed. The patient was then given back to anesthesia who successfully extubated the patient without any complications. A flexible fiber-optic laryngoscope was the. placed through the nasal cavity down to the laryngeal inlet. The vocal cords were visualized and found to be mobile bilaterally. Estimated blood loss: 10 mL Fluids: 500 mL The patient was then transported to the post anesthesia care unit in stable condition with spontaneous respirations.
[2019-07-29] MEDS ORDERED: HYDROCODONE/ACETAMINOPHEN 5-325 MG TABLET PO PRN (10:28)
[2019-07-29 13:59] VITALS: BP 133/67
== END 2019-07-29 11:25 | disposition home or self-care (01) ==
LOC: OROUT 05:14
PROVIDERS: ATTEND Otolaryngology
DX: D35.1 Benign neoplasm of parathyroid gland (principal); E04.1 Nontoxic single thyroid nodule; E21.0 Primary hyperparathyroidism; Z79.899 Other long term (current) drug therapy; E78.00 Pure hypercholesterolemia, unspecified
CPT/HCPCS: 93005; 36415 ×2; 85027; 80048; 83970; 88305 ×2; 88331 ×2; 93010; 60500; 92511; J2250; J3490 ×4; J1100; J3010; J2370; J0330; J2405; J2704; 320; J1170

== ENCOUNTER → 2019-09-01 | Outpatient (CLI) | payer MEDICARE, OTHER ==
[2019-09-01 12:04] LABS: ALBUMIN 4.2 g/dL (3.5-5.0); CALCIUM 9.5 mg/dL (8.4-10.2); PHOSPHORUS 5.1 mg/dL (2.5-4.5)
== END ==
LOC: OD 10:58
PROVIDERS: ATTEND Otolaryngology
DX: D35.1 Benign neoplasm of parathyroid gland (principal)
CPT/HCPCS: 36415; 82040; 82310; 83735; 83970; 84100

== ENCOUNTER → 2019-12-21 | Outpatient (CLI) | payer MEDICARE, OTHER ==
--- NOTE | 2019-12-21 16:39 | WOMENS IMAGING REPORT ---
EXAM DESCRIPTION: 3D SCREENING MAMMO BILAT COMPLETED DATE/TIME: 12/21/2019 1:20 pm REASON FOR STUDY: Z12.31 ENCOUNTER FOR SCREENING MAMMOGRAM FOR MALIGNANT NEOPLASM OF BREAST Z12.31 ENCNTR SCREEN MAMMOGRAM FOR MALIGNANT NEOPLASM OF HIEU COMPARISON: 2017 and subsequent. EXAM PARAMETERS: Views: Standard craniocaudal and mediolateral oblique views of each breast recorded using digital acquisition and breast tomosynthesis. Read with the assistance of CAD. .[facility] - [employer] Maker [employer] Rep[employer]r Version 9.2 LIMITATIONS: None. FINDINGS: No suspicious masses, suspicious calcifications or architectural distortion. No areas of c oncern. IMPRESSION: NEGATIVE MAMMOGRAM. BIRADS 1. BREAST DENSITY: c. The breasts are heterogeneously dense, which may obscure small masses. BIRAD: ASSESSMENT: 1 NEGATIVE RECOMMENDATION: ROUTINE SCREENING COMMENT: The patient has been notified of the results by letter per MQSA requirements. Additional no tification policies are in place for contacting patient with suspicious or incomplete findings. Quality ID #225: The [employer] recommends an annual screening mammogram for women aged 40 years or over. This facility utilizes a reminder system to ensure that all patients receive reminder letters, and/or direct phone calls for appointments. This includes reminders for routine scr eening mammograms, diagnostic mammograms, or other Breast Imaging Interventions when appropriate. Th is patient will be placed in the appropriate reminder system. TECHNICAL DOCUMENTATION: FINDING NUMBER: (1) ASSESSMENT: (1) JOB ID: [id number] 2010 [employer]- All Rights Reserved Reading location - IP/workstation name: [email or web address]
== END ==
LOC: WI 12:26
PROVIDERS: ATTEND Physician Assistant
DX: Z12.31 Encounter for screening mammogram for malignant neoplasm of breast (principal)
CPT/HCPCS: 77063; 77067

== ENCOUNTER → 2020-05-12 | Outpatient (CLI) | payer MEDICARE, OTHER ==
--- NOTE | 2020-05-12 14:39 | WOMENS IMAGING REPORT ---
EXAM DESCRIPTION: BONE DENSITY HIP/SPINE IMAGES COMPLETED DATE/TIME: 05/12/2020 1:06 pm REASON FOR STUDY: M81.0 AGE-RELATED OSTEOPOROSIS WITHOUT CURRENT PATHOLOGICAL FRACTURE M81.0 AGE-RE LATED OSTEOPOROSIS W/O CURRENT PATHOLOGICAL FRAC COMPARISON: 05/02/2018 TECHNIQUE: Dual-Energy X-ray Absorptiometry (DEXA) of the AP Spine and Hip. LIMITATIONS: None. FINDINGS: LUMBAR SPINE: The bone mineral density (BMD) measured from L1-L4 in the AP projection correlates with a T-score of -1.6, which is osteopenia as defined by the World Health Organization. BMD Change vs Baseline: 8% increase. HIP: The bone mineral density (BMD) measured in the left hip correlates with a T-score of -2.8, which is o steoporosis as defined by the World Health Organization. BMD Change vs Baseline: 6% decrease. 10 year Fracture Risk Assessment: Major Osteoporotic Fracture: Not available. Hip Fracture: Not available. IMPRESSION: 1. LUMBAR SPINE WHO CLASSIFICATION: OSTEOPENIA. 2. HIP WHO CLASSIFICATION: OSTEOPOROSIS. OVERALL ASSESSMENT: WHO CLASSIFICATION: OSTEOPOROSIS. COMMENT: The World Health Organization defines low BMD as follows: T-score: Normal: At or above -1.0 Osteopenia: Between -1.0 and -2.5 Osteoporosis: At or below -2.5 without fractures Established osteoporosis: At or below -2.5 with fractures In general, you may wish to consider: Diagnosis Treatment Follow-up DEXA Normal BMD Prevention 2-3 years Osteopenia Prevention/Therapy 1-2 years Osteoporosis Therapy Yearly TECHNICAL DOCUMENTATION: JOB ID: [id number] 2010 [employer]- All Rights Reserved Reading location - IP/workstation name: [email or web address]
== END ==
LOC: WI 12:57
PROVIDERS: ATTEND Physician Assistant Medical
DX: M81.0 Age-related osteoporosis without current pathological fracture (principal)
CPT/HCPCS: 77080